=== PATIENT | male | born 1995 | race Caucasian/White ===

== ENCOUNTER 2017-04-21 13:03 | Emergency (ER) | payer BC ==
[~2017-04-21] VITALS: Ht 180.3 cm; Wt 81.8 kg
[2017-04-21 13:07] VITALS: BP 157/96; TEMP 100.1
[2017-04-21] MEDS ORDERED: CLEOCIN HC150 MG/CAP PO (15:18)
[2017-04-21] MEDS ORDERED: NORCO 325 MG-51 TAB PO (15:18)
[2017-04-21 15:37] VITALS: PULSE 82
== END 2017-04-21 15:39 | disposition home or self-care (01) ==
LOC: COL.ER 13:03
DX: S02.609A Fracture of mandible, unspecified, initial encounter for closed fracture (principal); W50.0XXA Accidental hit or strike by another person, initial encounter